=== PATIENT | male | born 2000 | race Caucasian/White ===

== ENCOUNTER 2024-09-15 08:13 | Emergency (ER) | payer BC ==
[2024-09-15] MEDS: Metoclopramide 10 MG/2 ML SDV IM ONE (09:01)
[2024-09-15] MEDS: Acetaminophen 500 MG Tab PO ONE (09:01)
[2024-09-15 09:10] LABS: BASOPHILS PERCENT AUTO 0.5 % (0.0-1.0); EOSINOPHILS PERCENT AUTO 0.4 % (1.0-3.0); HEMOGLOBIN 16.2 g/dL (14.0-18.0); LYMPHOCYTES PERCENT AUTO 9.8 % (20.5-50.1); MEAN CORPUSCULAR HEMOGLOBIN 29.7 pg (27.0-34.0); MEAN CORPUSCULAR HGB CONC 33.8 g/dL (33.0-35.0); MEAN CORPUSCULAR VOLUME 88.1 fL (80-100); MONOCYTES PERCENT AUTO 7.4 % (2-8); NEUTROPHILS PERCENT AUTO 81.9 % (42.2-75.2); PLATELET COUNT,PLT 193 10^3/uL (150-450); RED BLOOD CELL COUNT 5.45 10^6/uL (4.6-6.2); WHITE BLOOD CELL COUNT,WBC 12.2 10^3/uL (5.0-10.0)
[2024-09-15 09:34] LABS: A/G RATIO 1.4; ALBUMIN 4.6 g/dL (3.4-5.0); ANION GAP 11.1 mEq/L (7-13); BILIRUBIN TOTAL 1.1 mg/dL (0.2-1.0); BUN/CREATININE RATIO 14.4 (No establ ref range); CALCIUM 9.8 mg/dL (8.5-10.1); CREATININE 1.11 mg/dL (0.70-1.30); EST CRCL DRUG DOSING (CG) 110.24 mL/min; POTASSIUM,K 5.1 mmol/L (3.5-5.1)
[2024-09-15] MEDS: Magnesium Citrate Solution 296 ML Bottle PO ONE (09:38)
== END 2024-09-15 09:52 | disposition home or self-care (01) ==
LOC: DL.ED 08:13
DX: K59.00 Constipation, unspecified (principal)
CPT/HCPCS: 36415; 74018; 80053; 85025; 96372; 99283; 99284; A9270-GY; J2765